=== PATIENT | male | born 1960 | race Caucasian/White ===

== ENCOUNTER 2018-09-28 05:01 | Observation (INO) | payer OTHER ==
[2018-09-28 05:51] LABS: #Lymphocytes 0.3 thou/uL (1.20-3.40); #Monocytes 0.5 thou/uL (0.11-0.59); #Neutrophils 5.6 thou/uL (1.40-6.50); %Eosinophils 0.7 % (0.0-10.0); %Lymphocytes 4.9 % (21.0-51.0); %Monocytes 7.5 % (0.0-10.0); Hemoglobin 9.1 g/dL (14.0-18.0); Mean Corpuscular HGB CONC 32.2 g/dL (32.0-36.0); Mean Corpuscular Hemoglobin 26.2 pg (27.0-31.0); Mean Corpuscular Volume 81.2 fL (78.0-98.0); Mean Platelet Volume 6.5 fL (7.4-10.4); Platelet Count 222 thou/uL (130-400); Red Blood Cell (RBC) Count 3.46 mill/uL (4.70-6.10); White Blood Cell (WBC) Count 6.5 thou/uL (4.8-10.8)
[2018-09-28] MEDS ORDERED: Dextrose 5 % And 0.9 % NaCl 1,000 ML IV SCH (07:15)
[2018-09-28] MEDS: Morphine 4 MG/ML VIAL SLOW IVP PRN ×2 (09:35→13:15)
[2018-09-28] MEDS ORDERED: ISOVUE-370 76%-LOCM 1 ML ONE (09:55)
[2018-09-28] MEDS ORDERED: Ondansetron ODT 4 MG TAB PO PRN (12:36)
[2018-09-28] MEDS ORDERED: Acetaminophen 500 MG TAB PO PRN (12:36)
[2018-09-28] MEDS ORDERED: Ondansetron PF 4 MG/2 ML Vial IVP PRN (12:36)
[2018-09-28] MEDS ORDERED: Acetaminophen/Codeine 30-300mg Tablet PO PRN (12:36)
[2018-09-28 13:25] VITALS: BMI 21.8
--- NOTE | 2018-09-28 14:44 | HP ---
PRIMARY CARE PROVIDER: Fadumo Rodriguez in [place], [place]. CHIEF COMPLAINT: Blood per rectum. HISTORY OF PRESENT ILLNESS: This is a 58-year-old male, who initially presented to [facility] complaining of blood per rectum, dark and bright red blood in the last 24 hours. The patient states he has a history of prior blood in the stool, but states he is currently on Lovenox 80 mg subcutaneously twice daily after recent diagnosis of right lower extremity DVT and bilateral pulmonary emboli through [facility] in [place], [place]. The patient states he has been compliant with the medication regimen and only takes Tylenol No. 3 in addition to the Lovenox. The patient states he had no specific symptoms other than swelling of the right lower extremity with incidental finding of pulmonary emboli after undergoing CT imaging for routine surveillance due to colon cancer. The patient states he has been treated over the last 5 years with intermittent rounds of chemotherapy and underwent sigmoidectomy. The patient is unsure of having a previous blood transfusion and states he has no specific abdominal pain, dysuria, fever, chills, or recent trauma. The patient denied any other associated symptoms and states he feels fine. In the emergency room, the patient was noted with a hemoglobin of 9.2 with otherwise stable vital signs. The patient was placed on IV fluids and placed in observation status. PAST MEDICAL HISTORY: 1. Colon cancer with current chemotherapy. 2. History of DVT/pulmonary embolus. 3. Chronic anticoagulation with Lovenox. 4. Chronic anemia. 5. Marijuana use. PAST SURGICAL HISTORY: 1. Status post sigmoidectomy. 2. Status post cholecystectomy. 3. Status post left ACL repair. 4. Status post open reduction and internal fixation of a right ankle fracture. 5. Status post right nephrostomy tube placement. 6. Status post right MediPort placement. CURRENT MEDICATIONS: 1. Tylenol No. 3. 2. Lovenox 80 mg subcutaneously b.i.d. ALLERGIES: TO COCONUT OIL. FAMILY HISTORY: No inheritable diseases per the patient report. SOCIAL HISTORY: The patient resides in the [place], [place] area. Retired. Uses marijuana. No tobacco or alcohol use. Functional of all activities of daily living. REVIEW OF SYSTEMS: CONSTITUTIONAL: Negative for weight loss or gain, ability to conduct usual activities. SKIN: Negative for rash, itching. EYES: Negative for double vision, pain. ENT/MOUTH: Negative for nose bleeding, neck stiffness, pain, tenderness. CARDIOVASCULAR: Negative for palpitations, dyspnea on exertion, orthopnea. RESPIRATORY: Negative for shortness of breath, wheezing, cough, hemoptysis, fever or night sweats. GASTROINTESTINAL: Negative for poor appetite, abdominal pain, heartburn, nausea, vomiting, constipation, or diarrhea. GENITOURINARY: Negative for urgency, frequency, dysuria, nocturia. MUSCULOSKELETAL: Negative for pain, swelling. NEUROLOGIC/PSYCHIATRIC: Negative for anxiety, depression. ALLERGY/IMMUNOLOGIC: Negative for skin rash, bleeding tendency. Otherwise, negative except as stated per HPI. PHYSICAL EXAMINATION: VITAL SIGNS: On admission; blood pressure 135/77, pulse 70s, respiratory rate is 14, temperature 98 degrees Fahrenheit, and O2 saturation 99% on room air. GENERAL APPEARANCE: This is a 58-year-old male, alert and oriented x3, pleasant, no acute distress. HEENT: Pupils are equal, round, and reactive to light and accommodation. Extraocular muscles are intact. No scleral icterus. No conjunctival injection. Nares patent. OP is clear. Teeth in good repair. NECK: Supple. No cervical adenopathy. No thyromegaly. No carotid bruits. No JVD appreciated. Cervical spine with full active and passive range of motion. No meningeal signs appreciated. CHEST: Lungs are clear to auscultation bilaterally. CARDIOVASCULAR: S1 and S2 without noted murmur, rub, or gallop. Right upper chest wall with MediPort catheter in place. ABDOMEN: Flat, soft, nontender, and nondistended. Bowel sounds are positive in all 4 quadrants. No hepatosplenomegaly. No abdominal bruits. No rebound or guarding appreciated. EXTREMITIES: Warm and dry with fair turgor. No clubbing, cyanosis, or asymmetric edema appreciated. Pulses palpable distally at the dorsalis pedis, posterior tibial, and popliteal arteries bilaterally. Capillary refill less than 2 seconds. NEUROLOGIC: Cranial nerves 2 through 12 are grossly intact. No focal or lateralizing signs appreciated. PERTINENT LAB AND X-RAY FINDINGS: Sodium 135, potassium 3.4, chloride 97, CO2 of 26, BUN 14, creatinine 0.9, estimated GFR of 91, calcium 9.0, alkaline phosphatase 455, AST 17, and ALT 22. CBC showed a white blood cell count of 6.5, hemoglobin 9.2, hematocrit 27, MCV 76, and platelet count 221. PT 15.9, INR 1.3, and PTT 59.8. ASSESSMENT AND PLAN: 1. Hematochezia. Suspect secondary to history of colon cancer in addition to ongoing anticoagulation with Lovenox. Hold Lovenox currently. Consider Gastroenterology evaluation with potential endoscopy to further define area of bleeding. Continue IV fluids. Serial H and H monitoring. 2. Pulmonary emboli/right lower extremity deep venous thrombosis. We will obtain CT angiogram of the chest to further define current status of pulmonary emboli. Check right lower extremity venous Doppler study to assess for resolution of DVT. The patient may be deemed an appropriate candidate for inferior vena cava filter placement. 3. Chronic anticoagulation. Current regimen includes Lovenox. See above with consideration for possible inferior vena cava filter. 4. Microcytic anemia. Appears chronic currently. Continue serial hemoglobin and hematocrit monitoring. No current active bleeding noted. 5. Colon cancer. Currently receiving chemotherapy through [facility] in [place], [place]. Outpatient followup. 6. Prophylaxis. Sequential compression devices held due to history of right lower extremity deep venous thrombosis. Pepcid 20 mg p.o. b.i.d. 7. Code status is full. Surrogate medical decision maker is the patient's spouse. Job ID: [id number]
--- NOTE | 2018-09-28 15:59 | CT ---
CT ANGIOGRAM THORAX WITH IV CONTRAST AND 3D RECONSTRUCTIONS: Date: 09/28/18 HISTORY: History of pulmonary emboli. Patient is on Lovenox. Colon cancer. COMPARISON: CT abdomen on 02/24/18. FINDINGS: There are innumerable noncalcified bilateral pulmonary nodules throughout the lungs. Largest pulmonar y nodules are seen at each lung apex measuring 3.5 cm on the right and 2.9 cm on the left. There were only a few small pulmonary nodules seen at the right lung base on prior CT exam of 2018 which have i ncreased in number, and the pulmonary nodules when compared to lung bases on the prior study have inc reased in number and size. There is evidence of mediastinal, as well as bilateral hilar lymphadenopathy. The largest right parat misael lymph node measures approximately 2.2 cm x 1.8 cm. Right hilar lymph node measures 2.7 cm x 2 .0 cm. No filling defects are seen in the pulmonary arteries to suggest a pulmonary embolus. The thoracic aorta is normal in caliber without evidence of an aortic dissection. A right subclavian MediPort catheter is noted in place with the tip at the level of the IVC atrial ju nction. There is a hypodense cystic appearing lesion again seen within the right hepatic lobe which measures approximately 4.6 cm and likely represents a large hepatic cyst. There is a subcentimeter hypodense l esion also again seen in the left hepatic lobe, difficult to characterize, but stable from prior stud y, also likely related to a cyst. However, there are multiple new scattered irregular hypodense frederick s within the liver, which are new when compared to prior noncontrasted CT examination and are suggest nora of multiple hepatic metastatic lesions. Largest lesion in the right hepatic lobe measures approxi mately 4.3 cm, with largest ill-defined area of diminished attenuation in the left hepatic lobe measu ring approximately 4.0 cm. There is a heterogeneous nodule within the right adrenal gland, not seen on the prior study, measurin g 2.4 cm, and probably attributable to a metastatic lesion. Calcified granulomata are again seen in the liver and spleen. Post cholecystectomy changes are noted. No lytic or sclerotic osseous lesion are identified. There are degenerative changes in the thoracic s pine. IMPRESSION: 1. Extensive metastatic disease with innumerable bilateral pulmonary nodules, hilar and mediastinal lymphadenopathy, as well as interval development of metastatic lesions throughout the liver and invol ving the right adrenal gland. 2. No CT evidence of a pulmonary embolus. 3. Right hepatic lobe cyst. POS: BLANCA
[2018-09-28 17:00] VITALS: BP 134/87; TEMP 98.4
--- NOTE | 2018-09-29 03:31 | DIS ---
DATE OF ADMISSION: 09/28/2018 DATE OF DISCHARGE: 09/28/2018 DISCHARGE DIAGNOSES: 1. Hematochezia, resolving. 2. History of pulmonary emboli and right lower extremity deep venous thrombosis, on Lovenox. 3. Chronic anticoagulation with Lovenox. 4. Microcytic anemia, chronic. 5. Stage IV colon cancer with current chemotherapy. CONSULTATIONS: None. PERTINENT LAB AND X-RAY FINDINGS: Hemoglobin ranged between 9.[address] angiogram of the chest dated 09/28/2018 showed extensive metastatic process with innumerable bilateral pulmonary nodules, hilar and mediastinal lymphadenopathy with interval development of metastatic lesions throughout the liver and right adrenal gland. No evidence for pulmonary embolus. HOSPITAL COURSE: The patient was observed on the medical floor after initially presenting with blood per rectum in the context of chronic anticoagulant with Lovenox due to history of right lower extremity DVT and pulmonary embolus. The patient underwent serial hemoglobin assessment showing overall stabilization and was held on Lovenox for approximately 24 hours. The patient had no recurrence of hematochezia, undergoing CT angiogram of the chest showing no evidence for pulmonary embolus. The patient was noted with widely metastatic process involving the lungs, liver, and right adrenal gland. Current recommendations are to hold Lovenox for approximately 48 hours and to discuss ongoing anticoagulation with his primary oncologist at [facility] on 09/30/2018. I have discussed followup instructions and recommendations with the patient at the time of discharge. He verbalized understanding and in agreement. The patient is ready for discharge on 09/28/2018. DISCHARGE MEDICATIONS: 1. Tylenol No. 3 one tablet p.o. q.4 hours p.r.n. 2. Lovenox 80 mg subcutaneously b.i.d. hold x48 hours. FOLLOWUP: The patient may follow up with his primary oncologist at [facility] within the next 3 to 5 days. The patient may also follow up with his primary care provider, Fadumo Rodriguez within 7 days. CONDITION ON DISCHARGE: Fair. ACTIVITY: Ad-elaina. DIET: Regular. CODE STATUS: Full. DISPOSITION: Home, 09/28/2018. Job ID: [id number]
== END 2018-09-28 20:14 | disposition home or self-care (01) ==
LOC: ERS 05:01 → ONC 05:29
PROVIDERS: ADMIT Hospitalist; ATTEND Hospitalist
DX: K92.1 Melena (principal); D50.9 Iron deficiency anemia, unspecified; C18.9 Malignant neoplasm of colon, unspecified; Z86.711 Personal history of pulmonary embolism; Z86.718 Personal history of other venous thrombosis and embolism; Z79.01 Long term (current) use of anticoagulants; Z91.018 Allergy to other foods
CPT/HCPCS: 71275; 85025; 86850; 86900; 86901; 96361; 96374; 96376; 99285; G0378; J2270; Q9966